=== PATIENT | male | born 1985 | race American Indian/Alaskan Native ===

== ENCOUNTER 2021-07-16 15:32 | Emergency (ER) | payer SELFPAY ==
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
[2021-07-16] MEDS ORDERED: PALIPERIDONE PALMITATE 156 MG/ML INJ IM ONE (18:26)
[2021-07-16 19:19] VITALS: BP 114/60
== END 2021-07-16 19:18 | disposition home or self-care (01) ==
LOC: ED 15:32
DX: F20.9 Schizophrenia, unspecified (principal)
CPT/HCPCS: 99282; J2426